=== PATIENT | female | born 1995 | race Caucasian/White ===

== ENCOUNTER 2022-09-30 19:00 | Emergency (ER) | payer OTHER, SELFPAY ==
--- NOTE | ~2022-09-30 | CT_ITS ---
EXAMINATION: CT abdomen pelvis w con DATE: 10/01/2022 01:09 INDICATION: Bilateral flank pain. Fever and chills. TECHNIQUE: Computed tomography (CT) of the abdomen and pelvis was performed with 100 mL Omnipaque 350 intravenous contrast. Automated exposure control and iterative reconstruction technique were employe d. The dose-length product was 715.21 mGy-cm. COMPARISON: None. FINDINGS: The visualized portions of the lung bases demonstrate minimal atelectasis. No pleural effus ion. The heart size is normal. No pericardial effusion. There is mild splenomegaly. The liver, gallbl adder, pancreas, adrenal glands, and left kidney are normal. There is a 10 mm cyst with peripheral ca lcification in right kidney. There are no dilated loops of bowel. The appendix is not visualized. The re is physiologic fluid in the pelvis. There is an umbilical hernia containing fat. There are no path ologically enlarged lymph nodes. There is no free intraperitoneal fluid. There is an involuting cyst in right ovary. There is mild lumbar spondylosis. There is mild chronic height loss of L5 vertebral b paulina posteriorly. IMPRESSION: 1. Umbilical hernia containing fat. 2. Mild splenomegaly. Reviewed, dictated and finalized at location A. ACCESS
--- NOTE | ~2022-09-30 | US_ITS ---
EXAMINATION: US pelvic complete DATE: 10/01/2022 04:21 INDICATION: Flank pain. Right ovarian cyst. TECHNIQUE: Multiple transabdominal sonographic images of the pelvis were obtained. COMPARISON: CT abdomen and pelvis 10/01/2022 FINDINGS: The uterus measures 8.4 x 4.4 x 5.6 cm. There is physiologic free fluid in the pelvis. The endometria l complex measures 9 mm in thickness. The right ovary measures 3.0 x 2.2 x 2.5 cm. The left ovary raimundo sures 3.5 x 2.2 x 2.0 cm. There is normal vascular flow in the ovaries. IMPRESSION: 1. Normal pelvis. Reviewed, dictated and finalized at location A. NESS SUPPORT LIAISON IMPRESSION: 1. Normal pelvis.
[2022-09-30 19:35] VITALS: BP 136/78; PULSE 101; RESP 16; TEMP 37.7; O2SAT 100
[2022-09-30 20:51] LABS: Appearance Urine Clear (Clear); Bilirubin Urine Negative (Negative); Blood Urine Negative (Negative); Color Urine Yellow (Yellow); Glucose Urine UA Negative (Negative); Ketones Urine 1+ mg/dL (Negative); Leukocyte Esterase Ur Negative LEU/UL (Negative); Nitrate Urine Negative (Negative); Protein Urine Trace mg/dL (Negative); Urobilinogen Urine 0.2 mg/dL (<2.0)
[2022-09-30 20:52] LABS: Basophils Percent Auto 0.3 % (0.2-1.2); Eosinophils Percent Auto 0.2 % (0-4.4); Hematocrit 40.5 % (37.0-47.0); Hemoglobin 12.9 g/dL (12.0-15.0); Immature Granulocyte Absolute 0.12 K/mm3 (0.00-0.031); Immature Granulocyte Percent A 1.2 % (0-0.5); Lymphocytes Absolute Auto 1.51 K/mm3 (0.9-3.2); Lymphocytes Percent Auto 15.4 % (18.3-44.2); Mean Corpuscular HGB Conc 31.9 g/dl (32-36); Mean Corpuscular Volume 84.9 fl (80-100); Mean Platelet Volume 10.3 fl (7.4-10.4); Monocytes Absolute Auto 0.8 K/mm3 (0.1-0.6); Monocytes Percent Auto 8.1 % (2.6-8.5); Neutrophils Absolute Auto 7.3 K/mm3 (1.3-6.7); Neutrophils Percent Auto 74.8 % (45.5-73.1); Platelet Count Result 284 k/mm3 (150-375); Red Blood Count 4.77 M/mm3 (4.2-5.4); Red Cell Distribution Width 14.9 % (11.5-14.5); White Blood Count 9.8 K/mm3 (4.5-10.0)
[2022-09-30 20:56] LABS: Amorphous Sediment Urine Few; Mucus Urine Few /lpf; Squamous Epithelial Cell Urine Rare /hpf (Few)
[2022-09-30 20:58] LABS: Add Urine Microscopic? YES; Alanine Aminotransferase 18 U/L (6-35); Albumin Level 4.8 g/dL (3.5-5.1); Alkaline Phosphatase 83 U/L (38-126); Anion Gap 9 mmol/L (8-16); Aspartate Amino Transferase 28 U/L (14-36); Bilirubin,Total 0.3 mg/dL (0.2-1.3); Blood Urea Nitrogen 15 mg/dL (7-17); Calcium 9.6 mg/dL (8.4-10.2); Carbon Dioxide 26 mmol/L (22-30); Chloride 103 mmol/L (98-107); Estimated CRCL calculation 59 ml/min; Estimated Glomerular Filt Rate 45; Glucose 103 mg/dL (65-110); Potassium 3.9 mmol/L (3.4-5.0); Sodium 138 mmol/L (137-145)
[2022-09-30 21:49] VITALS: BP 122/77; PULSE 119; RESP 18; TEMP 37.7; O2SAT 100
--- NOTE | 2022-09-30 21:50 | PC.NURSE ---
Pt reports taking 1000mg Tylenol at 2030.
[2022-10-01] VITALS (12 sets, daily range): BP systolic 115–132; BP diastolic 74–81; PULSE 74–85; RESP 18; TEMP 36.2–36.8; O2SAT 98–100
--- NOTE | 2022-10-01 00:25 | ED.ABDPAIN ---
HPI - Abdominal Pain General Chief Complaint: Abdominal Pain <DUY Avelar Last Filed: 10/01/22 03:38> Stated Complaint: flank pain/chills <DUY Avelar Last Filed: 10/01/22 03:38> Time Seen by Provider: 09/30/22 23:58 <DUY Avelar Last Filed: 10/01/22 03:38> History of Present Illness HPI narrative: Patient is a 27-year-old female here for evaluation of bilateral flank pain x 1 mo. Patient states she saw her [employer] upon symptom onset, had a UA done that was negative, but was placed on Cipro. Patient completed the course of Cipro with improvement of her flank pain, but she states that the pain came back several days ago. Pain is bilateral in nature, R>L, and is aching in quality. Denies relief after Tylenol and ibuprofen. She denies any dysuria, urgency, frequency or hematuria. Additionally notes several episodes of chills but has not taken her temperature. She was also treated for a sinus infection 2 weeks ago with Augmentin with improvement of her sinus symptoms, does note a sore throat returning today. <DUY Avelar Last Filed: 10/01/22 03:38> Related Data Allergies/Adverse Reactions: Allergies Allergy/AdvReac Type Severity Reaction Status Date / Time No Known Allergies Allergy Verified 09/29/22 14:34 <DUY Avelar Last Filed: 10/01/22 03:38> Review of Systems Review of Systems: Gen.: Reports fevers. Eyes: Denies eye pain or visual change ENT: Reports sore throat. Respiratory: Denies shortness of breath or cough CV: Denies chest pain or palpitations GI: Denies abdominal pain nausea, emesis or diarrhea denies burning, urgency, frequency or hematuria Musculoskeletal: Reports bilateral flank pain. Neuro: Denies numbness, tingling, weakness or focal weakness Skin: Denies rash Except as documented, all other systems reviewed and negative <DUY Avelar Last Filed: 10/01/22 03:38> PMFSH Past Medical History Medical History: Medical History BMI 30.0-30.9,adult <Shruti Arriaga PA-C - Last Filed: 10/01/22 03:38> Family History Family History: Family History Father Anxiety Mother Anxiety Depression Sibling Cerebrovascular accident Pulmonary embolism <Shruti Arriaga PA-C - Last Filed: 10/01/22 03:38> Social History Social History: Social History (Updated 09/29/22 @ 14:41 by EDITH Chiang) Smoking status: Never smoker Second hand tobacco smoke exposure: No Alcohol intake: current Substance use: never Substance use type: does not use Lack of Transportation: No Lack of Food: Never True Current Housing: I Have Housing Concerned About Future Housing: No Difficulty Paying Gas/Electric Bills: No Difficulty Paying for Meds: No Currently Unemployed: No Education: Bachelor's Degree Difficulty w/ Childcare or Family Care: No Additional occupation/education comments: Rn Gender identity (if verbalized by the patient): Female <Shruti Arriaga PA-C - Last Filed: 10/01/22 03:38> Exam Narrative: APPEARANCE: Well appearing, no pain in distress, well-nourished. Head: Normocephalic and atraumatic. EYES: PERRLA/EOMI, conjunctivae clear NOSE: No nasal drainage EARS: External ear normal in appearance THROAT: Slight tonsillar swelling but no exudates. Mucous membranes are moist. NECK: Supple. No adenopathy, no masses. RESPIRATORY: Airway patent, respirations nonlabored. Clear to auscultation bilaterally, no rales, rhonchi, wheezing. CARDIOVASCULAR: Regular rate and rhythm without murmurs, rubs, or gallops. ABDOMINAL: Normoactive bowel sounds. Soft, nontender, nondistended. No rebound tenderness or guarding. MUSCULOSKELETAL: No CVA tenderness. Extremities are warm and well-perfused. Moves all extr
[2022-10-01] MEDS: MORPHINE SULFATE (*CRX) 4 MG/ML INJ IV PUSH ×2 (00:31→03:28)
[2022-10-01] MEDS: SODIUM CHLORIDE 0.9% IV 1,000 ML 999 ML IV CONT ×2 (00:32→02:17)
[2022-10-01 00:49] LABS: Lactic Acid Reflex 0.8 mmol/L (0.7-2.0)
[2022-10-01 01:07] LABS: Influenza A QL RT-PCR Negative (Negative); Influenza B QL RT-PCR Negative (Negative); SARS-CoV-2 RNA PCR Negative
[2022-10-01 03:09] LABS: Monoscreen Negative (Negative); Negative Monotest Control Negative (Negative); Positive Monotest Control Positive (Positive)
== END 2022-10-01 05:16 | disposition home or self-care (01) ==
PROVIDERS: Physician Assistant; Emergency Provider Emergency Medicine; PCP Family Medicine
DX: B34.9 Viral infection, unspecified (principal); R10.9 Unspecified abdominal pain
CPT/HCPCS: 36415; 74177; 76856; 80053; 81001; 81025; 83605; 85025; 86308; 87636; 96361; 96365; 96375; 96376; 99284; J0131; J2270; J7030; Q9967

== ENCOUNTER 2023-10-10 14:38 | Outpatient (CLI) | payer OTHER, SELFPAY ==
--- NOTE | ~2023-10-10 | US_ITS ---
EXAMINATION: US venous doppler LE RT DATE: 10/10/2023 15:16 INDICATION: Right lower limb pain TECHNIQUE: Barfield scale images without and with compression and Doppler images of the right lower extre mity veins were obtained. COMPARISON: None FINDINGS: The right common femoral vein, profunda femoral vein, femoral vein, popliteal vein, peronea l trunk, posterior tibial veins, and greater saphenous vein are patent. IMPRESSION: 1. Patent right lower extremity veins. No evidence of deep venous thrombosis. Reviewed, dictated and finalized at location B. PRESIDENT
== END 2023-10-10 14:39 | disposition home or self-care (01) ==
PROVIDERS: PCP Family Medicine; Visit Provider Family Medicine
DX: M79.661 Pain in right lower leg (principal)
CPT/HCPCS: 93971